=== PATIENT | female | born 1995 | race Caucasian/White ===

== ENCOUNTER 2021-06-14 20:04 | Inpatient (IN) | payer OTHER ==
[~2021-06-14] VITALS: Ht 167.6 cm; Wt 88.9 kg
[2021-06-14 20:42] LABS: BILIRUBIN NEGATIVE (NEGATIVE); BLOOD TRACE-INTACT Ery/uL (NEGATIVE); CLARITY CLEAR (CLEAR); COLOR YELLOW (YELLOW); GLUCOSE (U) NORMAL (NORMAL); HCT 35.9 % (37.0-47.0); HGB 12.3 g/dl (12.5-16.0); LEUKOCYTES 3+ Leu/uL (NEGATIVE); MCH 29.8 pg (25.0-31.0); MCHC 34.3 g/dL (32.0-36.0); MCV 86.9 fL (78.0-100.0); MPV 11.8 fL (6.0-9.5); NITRITE NEGATIVE (NEGATIVE); PROTEIN TRACE (LOW) mg/dL (NEGATIVE); RBC 4.13 M/uL (4.20-5.40); RDW 13.9 % (11.5-14.0); SPECIFIC GRAVITY 1.025 (1.001-1.030); WBC 5.8 K/uL (4.0-10.5); pH 6.5 (5.0-9.0)
[2021-06-14 20:51] LABS: BACTERIA 4+; MUCOUS MODERATE; SQUAMOUS EPITHELIAL CELLS 20-50; URINARY WBC TNTC
[2021-06-14 20:52] LABS: AMORPHOUS URATES CRYSTALS TRACE
[2021-06-16 06:27] LABS: HCT 35.2 % (37.0-47.0); HGB 11.7 g/dl (12.5-16.0); MCH 30.2 pg (25.0-31.0); MCHC 33.2 g/dL (32.0-36.0); MCV 90.7 fL (78.0-100.0); MPV 11.6 fL (6.0-9.5); RBC 3.88 M/uL (4.20-5.40); RDW 14.3 % (11.5-14.0)
[2021-06-17] MEDS ORDERED: COLACE100 MG PO ×2 (08:47→08:48)
[2021-06-17] MEDS ORDERED: IBUPROFEN800 M1 PO ×2 (08:47→08:48)
[2021-06-17] MEDS ORDERED: PRENATAL FORMU1 EACH PO ×2 (08:47→08:48)
== END 2021-06-17 12:00 | disposition home or self-care (01) | DRG 806 ==
LOC: FOB 20:04
PROVIDERS: Obstetrics & Gynecology; ADMIT Specialist
PROC: 10E0XZZ Delivery of Products of Conception, External Approach (ICD-10-PCS; principal; 2021-06-15)
PROC: 10907ZC Drainage of Amniotic Fluid, Therapeutic from Products of Conception, Via Natural or Artificial Opening (ICD-10-PCS; 2021-06-15)
PROC: 0HQ9XZZ Repair Perineum Skin, External Approach (ICD-10-PCS; 2021-06-15)
DX: O36.63X0 Maternal care for excessive fetal growth, third trimester, not applicable or unspecified (principal); O99.12 Other diseases of the blood and blood-forming organs and certain disorders involving the immune mechanism complicating childbirth; Z37.0 Single live birth; Z3A.39 39 weeks gestation of pregnancy; Z20.822 Contact with and (suspected) exposure to COVID-19; O70.0 First degree perineal laceration during delivery; D69.6 Thrombocytopenia, unspecified; O99.214 Obesity complicating childbirth; Z86.16 Personal history of COVID-19
CPT/HCPCS: 36415; 81001; 86850; 86900; 86901; 90686; J0595; J2590; J7120; U0002